=== PATIENT | female | born 1960 | race Caucasian/White ===

== ENCOUNTER 2022-05-25 08:11 | Day surgery (SDC) | payer MEDICAID ==
[~2022-05-25] VITALS: Ht 160 cm; Wt 105.7 kg
[2022-05-25 08:02] VITALS: BP 113/63
[~2022-05-25 08:11] MED LIST: MULT-1179 PO
[2022-05-25] MEDS ORDERED: normal saline 1000ml 1,000 ML IV PRN (08:35)
[2022-05-25] MEDS ORDERED: OMEP40CA21 PO (08:42)
[2022-05-25] MEDS ORDERED: fentaNYL/PF 50MCG/1 ML 2ML syringe ONE (10:57)
[2022-05-25] MEDS ORDERED: midazolam 1 mg/ML 2ml injection ONE (10:57)
[2022-05-25] MEDS ORDERED: heparin sodium, porcine/PF 100unit/ml 5ML syringe ONE (10:57)
[2022-05-25] MEDS ORDERED: LIDOcaine 1% 30ml preserv. free vial ONE (11:26)
[2022-05-25 11:55] VITALS: BP 132/81
[2022-05-25 12:15] VITALS: BP 117/76
[2022-05-25 12:30] VITALS: BP 120/76
[2022-05-25 12:45] VITALS: BP 123/73
[2022-05-25 13:00] VITALS: BP 121/65
== END 2022-05-25 13:10 | disposition home or self-care (01) ==
LOC: SSTAY O 08:11
PROVIDERS: ATTEND Family Medicine
DX: C50.512 Malignant neoplasm of lower-outer quadrant of left female breast (principal); M19.90 Unspecified osteoarthritis, unspecified site; Z90.49 Acquired absence of other specified parts of digestive tract; Z98.84 Bariatric surgery status; Z87.891 Personal history of nicotine dependence; Z79.899 Other long term (current) drug therapy
CPT/HCPCS: 36561; 76937; 77001; 99152; 99153; C1788; C1894; J1642; J2250; J3010; J3490; J7030; A4620